=== PATIENT | male | born 1965 | race Caucasian/White ===

== ENCOUNTER 2016-04-28 15:14 | Emergency (ER) | payer OTHER ==
[~2016-04-28 15:14] MED LIST: ASPIR 8181 MG PO; CALCIUM 600 +1 EAC3 PO; CELLCEPT500 MG PO; CHLORTHALIDONE50 MG PO; COREG12.5 MG PO; COUMADIN4 MG PO; NITROQUICK0.4 MG SL; NORVASC5 MG PO; PLAQUENIL200 MG PO; ZESTRIL40 MG PO
== END 2016-04-28 19:09 | disposition critical access hospital (66) ==
LOC: ER 15:14
DX: J44.1 Chronic obstructive pulmonary disease with (acute) exacerbation (principal); J90 Pleural effusion, not elsewhere classified; I10 Essential (primary) hypertension; F17.210 Nicotine dependence, cigarettes, uncomplicated; Z79.01 Long term (current) use of anticoagulants; Z79.899 Other long term (current) drug therapy
CPT/HCPCS: 36415; 87502; 96365; 96375

== ENCOUNTER 2016-04-28 15:14 | Inpatient (IN) | payer OTHER ==
[2016-05-01] MEDS ORDERED: CELLCEPT500 MG PO (14:38)
[2016-05-01] MEDS ORDERED: ZESTRIL40 MG PO (14:40)
[2016-05-01] MEDS ORDERED: CALCIUM 600 +1 EAC3 PO (14:40)
[2016-05-01] MEDS ORDERED: PLAQUENIL200 MG PO (14:40)
[2016-05-01] MEDS ORDERED: NITROQUICK0.4 MG SL (14:41)
[2016-05-01] MEDS ORDERED: LASIX20 MG PO (14:41)
[2016-05-01] MEDS ORDERED: ASPIR 8181 MG PO (14:41)
[2016-05-01] MEDS ORDERED: SPIRIVA18 MCG IH (14:43)
[2016-05-01] MEDS ORDERED: PREDNISONE10 MG PO (14:43)
[2016-05-01] MEDS ORDERED: METOPROLOL TART25 MG PO (14:43)
== END 2016-05-01 14:20 | disposition home or self-care (01) | DRG 191 ==
LOC: ER 15:14 → MED 19:10
PROVIDERS: ADMIT Internal Medicine
DX: J44.0 Chronic obstructive pulmonary disease with (acute) lower respiratory infection (principal); N17.9 Acute kidney failure, unspecified; J90 Pleural effusion, not elsewhere classified; J20.9 Acute bronchitis, unspecified; J44.1 Chronic obstructive pulmonary disease with (acute) exacerbation; I12.9 Hypertensive chronic kidney disease with stage 1 through stage 4 chronic kidney disease, or unspecified chronic kidney disease; N18.3 Chronic kidney disease, stage 3 (moderate); F17.210 Nicotine dependence, cigarettes, uncomplicated; R00.0 Tachycardia, unspecified; R60.9 Edema, unspecified; G47.30 Sleep apnea, unspecified; M32.9 Systemic lupus erythematosus, unspecified; Z79.01 Long term (current) use of anticoagulants; Z79.82 Long term (current) use of aspirin; Z79.899 Other long term (current) drug therapy; Z82.49 Family history of ischemic heart disease and other diseases of the circulatory system; Z82.3 Family history of stroke; E87.5 Hyperkalemia
CPT/HCPCS: 36415; 87502; J0456